=== PATIENT | male | born 1975 | race Caucasian/White ===

== ENCOUNTER 2016-03-15 09:51 | Emergency (ER) | payer MEDICAID ==
[~2016-03-15] VITALS: Wt 77.5 kg
[~2016-03-15 09:51] MED LIST: ACET1TAB40 PO; CIPR500T4 PO; IBUP-1542 PO
[2016-03-15] MEDS ORDERED: ONDANSETRON (ODT) 4 MG TAB ODT STA (10:58)
[2016-03-15] MEDS ORDERED: ACETAMINOPHEN 325 MG TAB PO ONE (11:00)
[2016-03-15] MEDS ORDERED: BISM262O23 PO (11:08)
[2016-03-15] MEDS ORDERED: ONDA8TAB14 PO (11:08)
[2016-03-15] MEDS ORDERED: ACET500C5 PO (11:08)
--- NOTE | 2016-03-15 11:10 | ERD ---
ER Documentation Chief Complaint Date/Time DATE: 03/15/16 TIME: 11:09 Chief Complaint ABD PAIN, NAUSEA, VOMITING, ONSET 2 DAYS HPI This 40-year-old male presents with vomiting diarrhea since last night. There is no blood or mucus in the vomiting is nonbilious nonbloody. He has some mild epigastric abdominal pain. Denies his foreign travel or sick contacts. He has chills and body aches as well. He has no measured fever. ROS All systems reviewed and are negative except as per history of present illness. Medications Home Meds Active Scripts Bismuth Subsalicylate* (Pepto-Bismol*) 262 Mg/15 Ml Oral.susp, 15 ML PO Q3H Y for DIARRHEA for 4 Days, ML Prov:EN NEW MD 03/15/16 Acetaminophen* (Tylophen*) 500 Mg Capsule, 1 CAP PO Q6H Y for PAIN AND OR ELEVATED TEMP, #15 CAP Prov:EN NEW MD 03/15/16 Ondansetron (Ondansetron Odt) 8 Mg Tab.rapdis, 8 MG PO Q6H Y for NAUSEA AND/OR VOMITING, #8 TAB Prov:EN NEW MD 03/15/16 Ibuprofen* (Motrin*) 600 Mg Tab, 600 MG PO Q6, #20 TAB Prov:EN NEW MD 06/11/15 Acetaminophen-Codeine* (Acetaminophen-Cod #3*) 300-30 Mg Tab, 1 TAB PO Q4H Y for PAIN, #10 TAB Prov:EN NEW MD 10/07/14 Ibuprofen* (Motrin*) 600 Mg Tab, 600 MG PO Q6, #20 TAB Prov:EN NEW MD 10/07/14 Ciprofloxacin Hcl* (Ciprofloxacin Hcl*) 500 Mg Tablet, 500 MG PO BID for 10 Days , TAB Prov:EN NEW MD 10/07/14 Allergies Allergies: Coded Allergies: No Known Allergy (Unverified , 06/11/15) PMhx/Soc History of Surgery: No Anesthesia Reaction: No Hx Neurological Disorder: No Hx Respiratory Disorders: No Hx Cardiac Disorders: No Hx Psychiatric Problems: No Hx Miscellaneous Medical Probl: No Hx Alcohol Use: No Hx Substance Use: No Hx Tobacco Use: No Smoking Status: Never smoker Physical Exam Vitals Vital Signs Date Time Temp Pulse Resp B/P Pulse Ox O2 Delivery O2 Flow Rate FiO2 03/15/16 09:54 98.5 98 17 142/66 100 Physical Exam Const: [] Alert, [id number]. Head: Atraumatic Eyes: Normal Conjunctiva ENT: Normal External Ears, Nose and Mouth. Neck: Full range of motion..~ No meningismus. Resp: Clear to auscultation bilaterally Cardio: Regular rate and rhythm, no murmurs Abd: Soft, mild tenderness in the epigastric area. No tenderness at McBurney 's point and no Beck sign. No rebound., non distended. Normal bowel sounds Skin: No petechiae or rashes Back: No midline or flank tenderness Ext: No cyanosis, or edema Neur: Awake and alert Psych: Normal Mood and Affect Results 24 hrs Current Medications Medications (Trade) Dose Ordered Sig/Madhu Route PRN Reason Start Time Stop Time Status Last Admin Dose Admin Ondansetron HCl (Zofran Odt) 8 mg ONCE STAT ODT 03/15/16 10:58 03/15/16 10:59 DC 03/15/16 11:07 Acetaminophen (Tylenol Tab) 650 mg ONCE ONCE PO 03/15/16 11:00 03/15/16 11:01 DC 03/15/16 11:06 Procedures/MDM This patient presents with signs and symptoms of vomiting and diarrhea, abdominal pain and body aches, likely viral gastritis. Signs and symptoms are consistent with appendicitis, hepatobiliary disease, UTI, sepsis or additional causes of patient's symptoms. He was treated with Zofran, Tylenol and Pepto- Bismol and observation at home. The patient was stable with no new complaints during the ER course. Clinically, there is no current evidence to suggest meningitis, sepsis, acute abdomen, pneumonia, acute coronary syndrome, pulmonary embolism, or any other emergent condition appearing to require further evaluation or hospitalization. The patient should certainly return for any new or worsening symptoms per the aftercare instructions. They should otherwise follow-up with her primary care doctor for reevaluation this week. Departure Diagnosis: Primary Impression: Vomiting and diarrhea Additional Impression: Abdominal pain Abdominal location: epigastric Qualified Code: R10.13 - Epigastric pain Condition: Stable Patient Instructions: Abdominal Pain, Vomiting And Diarrhea, Nonspecific (Adult ) Additional Instructions: probablamente un virus que dura 2-4 reed. cheque otro carlo el proximo jose para mas simptomas- vomito, dolor, ramon, problemas con respirando, o con flores doctor primario. EN NEW MD Mar 15, 2016 11:10
== END 2016-03-15 11:35 | disposition home or self-care (01) ==
LOC: FTE 09:51
DX: R11.10 Vomiting, unspecified (principal); R10.13 Epigastric pain; R19.7 Diarrhea, unspecified
CPT/HCPCS: Z7502; Z7610; 99283

== ENCOUNTER 2018-01-07 14:59 | Emergency (ER) | END 2018-01-07 16:03 | disposition home or self-care (01) ==